=== PATIENT | female | born 1970 | race Caucasian/White ===

== ENCOUNTER 2019-06-29 15:32 | Observation (INO) ==
--- NOTE | 2019-06-29 15:38 | Emergency Department Note ---
Disposition Clinical Impression: Febrile illness, acute, Hyperkalemia Disposition: Admitted As Inpatient Condition: Fair Time of Disposition: 18:30 General Adult HPI - General Chief complaint: ED Fever Stated complaint: FEVER, NAUSEA Time Seen by Provider: 06/29/19 15:50 Source: patient Mode of arrival: private vehicle Limitations: no limitations Nursing Notes Reviewed: Yes Vital Signs Reviewed: Yes - History of Present Illness HPI Narrative: Patient reports she started feeling poorly yesterday evening. By this morning she is having more fevers and chills with a "slight headache". Today's progress the headache got a bit worse and is bitemporal and around her eyes. Headache is described as throbbing. She did take some Tylenol for the fevers chills and headache and states it is helped a bit. She denies any neck pain or stiffness. She has a new extremity numbness, tingling or weakness but admits that she has chronic neuropathy. She has some generalized weakness and malaise. She has had exposure to a niece and nephew with "colds". She denies sore throat or sinus pain. She denies cough or any increased from her normal dyspnea on exertion. She has had all nausea that will "come and go" but no vomiting. She has abdominal pain other than some mild suprapubic discomfort. She denies any urinary frequency, dysuria, abnormal odor or flank pain. She notes that she is usually "numb down there" from her neuropathy and often does not have many symptoms with urinary tract infection. She states she has normal amount of constipation secondary to her medications. 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 She did have a small red spot on her left pretibial region for which she has taken some clindamycin from an old prescription for the last 5 days. She notes that is looking much better and she only has a small scab there now. She has had a history of heart disease with a cardiac stent in December 2016. She occasionally has a feeling of an irregular heartbeat but no other chest pain or palpitations. Onset (ago): day(s) (1) Associated symptoms: Reports: fever/chills, headaches, loss of appetite, malaise, weakness. Denies: confusion, chest pain, cough, diaphoresis, nausea/vomiting, rash, seizure, shortness of breath, syncope - Related Data Home Medications Medication Instructions Recorded Confirmed Bupropion HCl [Wellbutrin Xl] 300 mg PO QAM 05/23/16 06/29/19 Albuterol Sulfate [Proair Hfa] 1 - 2 puff IH Q4H PRN 01/12/17 06/29/19 Furosemide [Lasix] 40 mg PO DAILY 01/12/17 06/29/19 Simvastatin [Zocor] 80 mg PO DAILY 01/12/17 06/29/19 Amlodipine Besylate 10 mg PO DAILY 02/04/18 06/29/19 Buprenorphine HCl/Naloxone HCl 1 each SL AD 02/04/18 06/29/19 [Suboxone 8 mg-2 mg Sl Film] Hydralazine HCl 100 mg PO BID 02/04/18 06/29/19 Insulin Glargine,Hum.rec.anlog 60 unit SQ HS 02/04/18 06/29/19 [Lantus Solostar] cloNIDine HCl [Clonidine HCl] 0.2 mg PO Q12H 02/04/18 06/29/19 Insulin LISPRO [Humalog Kwikpen 45 units SQ TIDWM 02/05/18 06/29/19 U-100] Lisinopril [Zestril] 20 mg PO DAILY 02/05/18 06/29/19 Metoprolol Succinate [Toprol Xl] 25 mg PO BID 02/05/18 06/29/19 Fluticasone/Salmeterol [Advair 1 each IH DAILY 06/29/19 06/29/19 250-50 Diskus] Furosemide [Lasix] 20 mg PO AD 06/29/19 06/29/19 Methocarbamol [Robaxin] 62 mg PO Q8HR 06/29/19 06/29/19 Previous Rx's Medication Instructions Recorded Aspirin 81 mg PO DAILY tab.chew 01/15/17 Clopidogrel [Plavix] 75 mg PO DAILY #30 tablet 01/15/17 Allergies Allergy/AdvReac Type Severity Reaction Status Date / Time Iodinated Contrast Media Allergy Hives Verified 02/05/18 09:24 [Iodinated Contrast Media - IV Dye] pioglitazone [From Actos] Allergy See Verified 02/05/18 09:24 Comments Sulfa (Sulfonamide Allergy Hives Verified 02/05/18 09:24 Antibiotics) sulfamethoxazole Allergy Itching Verified 02/05/18 09:24 [From Bactrim] trimethoprim [From Bactrim] Allergy Itching Verified 02/05/18 09:24 NSAIDS (Non-Steroidal AdvReac See Verified 02/05/18 09:24 Anti-Inflamma Comments All systems ED: reviewed and negative except as stated. Past Medical History - Past Medical History Attestation: Yes The following information was validated with the patient. Source: patient, old records reviewed, nursing notes reviewed Medical history: Reports: arthritis, CHF, COPD, coronary artery disease, diabetes, fibromyalgia, hyperlipidemia, hypertension, kidney stones, myocardial infarction, renal disease, venous stasis, other (Elevated BMI) Surgical history: Reports: angioplasty/stent, orthopedic, other (Carpal tunnel), other (Tonsillectomy) Psychiatric history: Reports: anxiety, depression GRADUATE ASSISTANT history: Reports: endometriosis, polycystic ovary syndrome - Social History Smoking Status: Current every day smoker Smokeless Tobacco Status: No Alcohol use: Reports: none Drug use: Reports: opiates (History of previous addiction with "snorting OxyContin".). Denies: IV Drug Use Physical Exam - General Limitations: no limitations General appearance: alert, in no apparent distress - Head Head exam: atraumatic, normocephalic, normal inspection - Eye Eye exam: Present: normal appearance, PERRL, EOMI. Absent: scleral icterus, conjunctival injection - ENT ENT exam: normal exam, normal oropharynx, mucous membranes moist - Neck Neck exam: Present: normal inspection, full ROM, trachea midline. Absent: tenderness, meningismus, lymphadenopathy - Chest Chest inspection: Present: normal inspection, symmetric chest wall rise. A bsent: tenderness - Respiratory Respiratory exam: Present: normal lung sounds bilaterally. Absent: respiratory distress, wheezes, prolonged expiratory phase - Cardiovascular Cardiovascular exam: Present: regular rate, normal rhythm, systolic murmur (2/6 at the left upper sternal border.) - Abdominal Exam Abdominal exam: Present: soft, Non-Tender, normal bowel sounds. Absent: ten derness, distention, guarding, rebound, rigidity, Coronado's sign, tenderness at McBurney's Point - Extremities Exam Extremities exam: Present: full ROM, normal capillary refill, other (Patient has chronic induration and discoloration of bilateral lower extremities consistent with chronic venous stasis. She does have a small scab and left pretibial region without any significant erythema or any abnormal warmth to either lower extremity.). Absent: tenderness, pedal edema - Expanded Lower Extremity Exam Neurovascular/Tendon exam: Present: normal capillary refill. Absent: motor deficit, sensory deficit, tendon deficit Gait: other (Stable gait, ambulating with a cane.) - Back Exam Back exam: Present: normal inspection, full ROM. Absent: tenderness - Neurological Exam Neurological exam: Present: alert, oriented X3 - Psychiatric Psychiatric exam: Present: normal affect, normal mood - Skin Skin exam: Present: warm, dry, intact, normal color, other (Small scab and "a couple cat scratches" to the legs.). Absent: rash, diaphoresis, pallor Course Course Narrative: 1710: She is resting comfortably and has received a liter of saline. She does not have nausea and she states her headache is improved. Her urine is clear white count is a little elevated. I am awaiting her chemistries. She feels comfortable and symptomatic treatment and outpatient management. She does not have localizing symptoms to suggest encephalitis, meningitis or septic focus. Patient is willing to await the return of the remainder of the laboratories with anticipation of discharge to home. 1719: Laboratory has called to advise of a potassium of 6.5. I requested a redraw to recheck. 1755: Patient's potassium recheck is again 6.5. She is been written for an amp of D50, an amp of bicarbonate and insulin IV. She will be continued with IV fluids. 1830: Care has been discussed with Dr. Carrero. Verbal orders have been obtained for her observation and repeat laboratory. Vital Signs Temperature 102.9 F H 06/29/19 15:34 Pulse Rate 104 06/29/19 15:34 Respiratory Rate 18 06/29/19 15:34 Blood Pressure 207/71 06/29/19 15:34 O2 Sat by Pulse Oximetry 93 06/29/19 15:34 Temperature 100.1 F H 06/29/19 21:51 Pulse Rate 96 06/29/19 20:29 Respiratory Rate 16 06/29/19 21:31 Blood Pressure 146/58 06/29/19 20:29 O2 Sat by Pulse Oximetry 93 06/29/19 21:31 Oxygen Delivery Oxygen Delivery Room Air Medical Decision Making - Medical Records Medical records reviewed: Yes I reviewed the patient's medical records. - Lab Data Lab results reviewed: Yes I reviewed the patient's lab results. Result diagrams: 06/29/19 16:07 06/29/19 22:17 Lab Results 06/29/19 06/29/19 06/29/19 Range/Units 16:07 16:07 16:07 WBC 16.4 H (4.3-11.1) K/mcL RBC 3.96 (3.82-4.97) M/mcL Hgb 10.9 L (11.5-15.4) g/dL Hct 34.2 L (35.3-44.9) % MCV 86.4 (83.0-100.0) fL MCH 27.5 L (28.0-33.3) pg MCHC 31.9 (31.6-35.5) g/dL RDW 15.8 H (11.5-14.5) % Plt Count 199 (140-400) K/mcL MPV 9.6 (9.4-12.4) fL Immature Gran % 0.4 (0-4) % Seg Neutrophils % 86.6 % Lymphocytes % 6.4 % Monocytes % 5.3 % Eosinophils % 0.9 % Basophils % 0.4 % Neutrophils # 14.2 H (1.6-8.9) K/mcL Lymphocytes # 1.1 (0.6-4.6) K/mcL Monocytes # 0.9 (0.0-1.3) K/mcL Eosinophils # 0.2 (0.0-0.6) K/mcL Basophils # 0.1 (0.0-0.2) K/mcL Sodium (136-145) mEq/L Potassium (3.5-5.1) mEq/L Chloride (98-107) mEq/L Carbon Dioxide (23-29) mEq/L BUN (6-20) mg/dL Creatinine (0.60-1.20) mg/dL Est GFR ( Amer) (> 60) Est GFR (Non-Af Amer) (> 60) BUN/Creatinine Ratio (6-26) Glucose (70-105) mg/dL Calculated Osmolality (280-300) Lactic Acid (0.5-2.2) mmol/L Calcium (8.6-10.3) mg/dL Total Bilirubin (0.3-1.0) mg/dL Direct Bilirubin (0.0-0.2) mg/dL Indirect Bilirubin (0.0-1.2) mg/dL AST (13-39) Units/L ALT (7-52) Units/L Alkaline Phosphatase (34-104) Units/L Serum Total Protein (6.4-8.9) g/dL Albumin (3.5-5.7) g/dL Globulin (2.4-3.5) g/dL Albumin/Globulin Ratio (1.1-2.2) Procalcitonin (0.00-0.15) ng/mL Urine Color Yellow (Yellow) Urine Clarity Clear (Clear) Urine pH 5.5 (5.0-8.0) pH Units Ur Specific [place] 1.020 (1.010-1.025) Urine Protein >=300 H (Neg-Trace) mg/dL Urine Glucose (UA) Normal (Normal) mg/dL Urine Ketones Negative (Negative) mg/dL Urine Blood Trace-intact H (Negative) Urine Nitrite Negative (Negative) Urine Bilirubin Negative (Negative) Urine Urobilinogen Normal (Normal) mg/dL Ur Leukocyte Esterase Negative (Negative) Urine Microscopic RBC 3-5 H (0-3) per hpf Ur Squamous Epith Cells Few (None-Few) per lpf Urine Bacteria Few (None-Few) per hpf Ur Culture Indicated? YES A (NO) Urine Test Negative (Negative) 06/29/19 06/29/19 06/29/19 Range/Units 16:07 16:07 16:13 WBC (4.3-11.1) K/mcL RBC (3.82-4.97) M/mcL Hgb (11.5-15.4) g/dL Hct (35.3-44.9) % MCV (83.0-100.0) fL MCH (28.0-33.3) pg MCHC (31.6-35.5) g/dL RDW (11.5-14.5) % Plt Count (140-400) K/mcL MPV (9.4-12.4) fL Immature Gran % (0-4) % Seg Neutrophils % % Lymphocytes % % Monocytes % % Eosinophils % % Basophils % % Neutrophils # (1.6-8.9) K/mcL Lymphocytes # (0.6-4.6) K/mcL Monocytes # (0.0-1.3) K/mcL Eosinophils # (0.0-0.6) K/mcL Basophils # (0.0-0.2) K/mcL Sodium 135 L (136-145) mEq/L Potassium 6.5 H* (3.5-5.1) mEq/L Chloride 108 H (98-107) mEq/L Carbon Dioxide 20 L (23-29) mEq/L BUN 34 H (6-20) mg/dL Creatinine 1.47 H (0.60-1.20) mg/dL Est GFR ( Amer) 46 L (> 60) Est GFR (Non-Af Amer) 38 L (> 60) BUN/Creatinine Ratio 23 (6-26) Glucose 164 H (70-105) mg/dL Calculated Osmolality 291 (280-300) Lactic Acid 1.0 (0.5-2.2) mmol/L Calcium 8.6 (8.6-10.3) mg/dL Total Bilirubin 0.3 (0.3-1.0) mg/dL Direct Bilirubin 0.0 (0.0-0.2) mg/dL Indirect Bilirubin 0.3 (0.0-1.2) mg/dL AST 12 L (13-39) Units/L ALT 11 (7-52) Units/L Alkaline Phosphatase 68 (34-104) Units/L Serum Total Protein 7.3 (6.4-8.9) g/dL Albumin 3.7 (3.5-5.7) g/dL Globulin 3.6 H (2.4-3.5) g/dL Albumin/Globulin Ratio 1.0 L (1.1-2.2) Procalcitonin 0.11 (0.00-0.15) ng/mL Urine Color (Yellow) Urine Clarity (Clear) Urine pH (5.0-8.0) pH Units Ur Specific [place] (1.010-1.025) Urine Protein (Neg-Trace) mg/dL Urine Glucose (UA) (Normal) mg/dL Urine Ketones (Negative) mg/dL Urine Blood (Negative) Urine Nitrite (Negative) Urine Bilirubin (Negative) Urine Urobilinogen (Normal) mg/dL Ur Leukocyte Esterase (Negative) Urine Microscopic RBC (0-3) per hpf Ur Squamous Epith Cells (None-Few) per lpf Urine Bacteria (None-Few) per hpf Ur Culture Indicated? (NO) Urine Test (Negative) 06/29/19 Range/Units 17:42 WBC (4.3-11.1) K/mcL RBC (3.82-4.97) M/mcL Hgb (11.5-15.4) g/dL Hct (35.3-44.9) % MCV (83.0-100.0) fL MCH (28.0-33.3) pg MCHC (31.6-35.5) g/dL RDW (11.5-14.5) % Plt Count (140-400) K/mcL MPV (9.4-12.4) fL Immature Gran % (0-4) % Seg Neutrophils % % Lymphocytes % % Monocytes % % Eosinophils % % Basophils % % Neutrophils # (1.6-8.9) K/mcL Lymphocytes # (0.6-4.6) K/mcL Monocytes # (0.0-1.3) K/mcL Eosinophils # (0.0-0.6) K/mcL Basophils # (0.0-0.2) K/mcL Sodium (136-145) mEq/L Potassium 6.5 H* (3.5-5.1) mEq/L Chloride (98-107) mEq/L Carbon Dioxide (23-29) mEq/L BUN (6-20) mg/dL Creatinine (0.60-1.20) mg/dL Est GFR ( Amer) (> 60) Est GFR (Non-Af Amer) (> 60) BUN/Creatinine Ratio (6-26) Glucose (70-105) mg/dL Calculated Osmolality (280-300) Lactic Acid (0.5-2.2) mmol/L Calcium (8.6-10.3) mg/dL Total Bilirubin (0.3-1.0) mg/dL Direct Bilirubin (0.0-0.2) mg/dL Indirect Bilirubin (0.0-1.2) mg/dL AST (13-39) Units/L ALT (7-52) Units/L Alkaline Phosphatase (34-104) Units/L Serum Total Protein (6.4-8.9) g/dL Albumin (3.5-5.7) g/dL Globulin (2.4-3.5) g/dL Albumin/Globulin Ratio (1.1-2.2) Procalcitonin (0.00-0.15) ng/mL Urine Color (Yellow) Urine Clarity (Clear) Urine pH (5.0-8.0) pH Units Ur Specific [place] (1.010-1.025) Urine Protein (Neg-Trace) mg/dL Urine Glucose (UA) (Normal) mg/dL Urine Ketones (Negative) mg/dL Urine Blood (Negative) Urine Nitrite (Negative) Urine Bilirubin (Negative) Urine Urobilinogen (Normal) mg/dL Ur Leukocyte Esterase (Negative) Urine Microscopic RBC (0-3) per hpf Ur Squamous Epith Cells (None-Few) per lpf Urine Bacteria (None-Few) per hpf Ur Culture Indicated? (NO) Urine Test (Negative) - Radiology Data Radiology results reviewed: Yes I reviewed the patient's radiology results. - EKG Data EKG #1 EKG attestation: Yes I reviewed and interpreted this EKG. EKG shows normal: sinus rhythm, axis, intervals, QRS complexes, ST-T waves Rate: normal Interpretation: no acute changes
[2019-06-29] MEDS ORDERED: 0.9 % Sodium Chloride 1,000 ML IVC ONE (15:52)
[2019-06-29] MEDS ORDERED: Acetaminophen 325 MG TABLET PO ONE (15:53)
[2019-06-29] MEDS ORDERED: 0.9 % Sodium Chloride 1,000 ML IVC SCH (16:00)
[2019-06-29 16:17] LABS: Bilirubin,Urine Negative (Negative); Blood,Urine Trace-intact (Negative); Clarity,Urine Clear (Clear); Color,Urine Yellow (Yellow); Glucose,Urine (UA) Normal (Normal); Ketones,Urine Negative (Negative); Leukocyte Esterase,Urine Negative (Negative); Nitrite,Urine Negative (Negative); PH,Urine 5.5 pH Units (5.0-8.0); Protein,Urine >=300 mg/dL (Neg-Trace); Urobilinogen,Urine Normal (Normal)
[2019-06-29 16:22] LABS: Basophils # 0.1 K/mcL (0.0-0.2); Basophils % 0.4 %; Eosinophils # 0.2 K/mcL (0.0-0.6); Eosinophils % 0.9 %; Hematocrit 34.2 % (35.3-44.9); Hemoglobin 10.9 g/dL (11.5-15.4); Immature Granulocytes % 0.4 % (0-4); Lymphocytes # 1.1 K/mcL (0.6-4.6); Lymphocytes % 6.4 %; Mean Corpuscular HGB Conc 31.9 g/dL (31.6-35.5); Mean Corpuscular Hemoglobin 27.5 pg (28.0-33.3); Mean Corpuscular Volume 86.4 fL (83.0-100.0); Mean Platelet Volume 9.6 fL (9.4-12.4); Monocytes # 0.9 K/mcL (0.0-1.3); Monocytes % 5.3 %; Neutrophils # 14.2 K/mcL (1.6-8.9); Platelet Count 199 K/mcL (140-400); Red Blood Count 3.96 M/mcL (3.82-4.97); Red Cell Distribution Width 15.8 % (11.5-14.5); Segmented Neutrophils % 86.6 %; White Blood Count 16.4 K/mcL (4.3-11.1)
[2019-06-29 16:29] LABS: Bacteria,Urine Few per hpf (None-Few); Squamous Epithelial Cell,Urine Few per lpf (None-Few)
[2019-06-29 17:26] LABS: Albumin 3.7 g/dL (3.5-5.7); Bilirubin,Indirect 0.3 mg/dL (0.0-1.2); Bilirubin,Total 0.3 mg/dL (0.3-1.0); Calcium 8.6 mg/dL (8.6-10.3); Globulin 3.6 g/dL (2.4-3.5); Potassium 6.5 mEq/L (3.5-5.1); Total Protein 7.3 g/dL (6.4-8.9)
[2019-06-29] MEDS ORDERED: *HR* Dextrose 50 % in Water (Syg) 50 ML SYRINGE IVP ONE (17:54)
[2019-06-29] MEDS ORDERED: Insulin Human Regular 10 UNIT in 0.9 % Sodium Chloride 10 ML IV ONE (17:54)
[2019-06-29] MEDS ORDERED: Sodium Bicarbonate 50 MEQ in 0.45 % Sodium Chloride 1,000 ML IVC SCH (18:00)
[2019-06-29] MEDS ORDERED: Sodium Bicarbonate 50 MEQ/50 ML VIAL IVP ONE (18:18)
[2019-06-29] MEDS ORDERED: Albuterol 2.5 MG/3 ML NEBULIZER IH PRN (18:42)
[2019-06-29] MEDS ORDERED: Ondansetron 4 MG/2 ML VIAL IVP PRN (18:54)
[2019-06-29] MEDS ORDERED: MOM Conc 10 ML UD.LIQ PO PRN (18:54)
[2019-06-29] MEDS ORDERED: Mag Hydrox/Al Hydrox/Simeth 30 ML UDC PO PRN (18:54)
[2019-06-29] MEDS ORDERED: NALOXONE HCL SL SCH (18:54)
[2019-06-29] MEDS ORDERED: Naloxone 0.4 MG/ML INJ IVP PRN (18:54)
[2019-06-29] MEDS ORDERED: D5% in Water 1,000 ML IVC PRN (18:54)
[2019-06-29] MEDS ORDERED: *HR* Dextrose 50 % in Water (Syg) 50 ML SYRINGE IVP PRN (18:54)
[2019-06-29] MEDS ORDERED: BUPRENORPHINE HCL SL SCH (18:54)
[2019-06-29] MEDS ORDERED: Dextrose Gel 15 GM/37.5 ML TUBE PO PRN ×2 (18:54)
[2019-06-29] MEDS: cloNIDine HCl 0.1 MG TABLET PO SCH (19:26)
[2019-06-29] MEDS: Acetaminophen 325 MG TABLET PO PRN (19:26)
[2019-06-29] MEDS: 0.9 % Sodium Chloride 1,000 ML IVC SCH (19:27)
[2019-06-29] MEDS ORDERED: Azithromycin 500 MG in 0.9 % Sodium Chloride 250 ML IVPB ONE (19:57)
[2019-06-29] MEDS ORDERED: cefTRIAXone 1,000 MG in Water for inj. (sterile) 10 ML IVP ONE (19:57)
[2019-06-29] MEDS ORDERED: Insulin DETEMIR 100 UNIT/ML per UNIT SQ ONE (21:00)
[2019-06-29] MEDS: hydrALAZINE 25 MG TABLET PO SCH (21:10)
[2019-06-29] MEDS: Metoprolol XL (24 HR) Succ 25 MG TAB.ER.24H PO SCH (21:10)
[2019-06-29] MEDS: Ipratropium/Albuterol Neb 3 ML IH SCH (21:31)
[2019-06-29] MEDS ORDERED: Ipratropium/Albuterol Neb 3 ML IH SCH (22:00)
[2019-06-29 22:39] LABS: Calcium 7.6 mg/dL (8.6-10.3); Potassium 6.3 mEq/L (3.5-5.1)
[2019-06-30] MEDS ORDERED: Methocarbamol 500 MG TABLET PO SCH
[2019-06-30] MEDS: Albuterol 2.5 MG/3 ML NEBULIZER IH PRN ×2 (02:23→21:15)
[2019-06-30] MEDS: Acetaminophen 325 MG TABLET PO PRN (02:46)
[2019-06-30] MEDS: Ipratropium/Albuterol Neb 3 ML IH SCH ×2 (05:04→10:17)
[2019-06-30 06:32] LABS: Hematocrit 28.9 % (35.3-44.9); Mean Corpuscular HGB Conc 31.1 g/dL (31.6-35.5); Mean Corpuscular Hemoglobin 27.2 pg (28.0-33.3); Mean Corpuscular Volume 87.3 fL (83.0-100.0); Platelet Count 155 K/mcL (140-400); Red Blood Count 3.31 M/mcL (3.82-4.97); Red Cell Distribution Width 15.8 % (11.5-14.5); White Blood Count 12.3 K/mcL (4.3-11.1)
[2019-06-30] MEDS: cloNIDine HCl 0.1 MG TABLET PO SCH ×2 (06:57→18:04)
[2019-06-30 06:59] LABS: Calcium 7.4 mg/dL (8.6-10.3); Potassium 5.2 mEq/L (3.5-5.1)
[2019-06-30] MEDS ORDERED: Acetaminophen 325 MG TABLET PO PRN (07:16)
[2019-06-30] MEDS ORDERED: INSULIN LISPRO 45 UNIT SQ SCH (08:00)
[2019-06-30] MEDS: Insulin LISPRO 300 UNITS/3 ML VIAL SQ SCH ×3 (08:42→18:04)
[2019-06-30] MEDS: hydrALAZINE 25 MG TABLET PO SCH ×2 (08:43→20:51)
[2019-06-30] MEDS: 0.9 % Sodium Chloride 1,000 ML IVC SCH (08:44)
[2019-06-30] MEDS: Metoprolol XL (24 HR) Succ 25 MG TAB.ER.24H PO SCH ×2 (08:44→23:48)
[2019-06-30] MEDS ORDERED: amLODIPine 5 MG TABLET PO SCH (09:00)
[2019-06-30] MEDS ORDERED: Lisinopril 20 MG TABLET PO SCH (09:00)
[2019-06-30] MEDS ORDERED: Furosemide 40 MG TABLET PO SCH (09:00)
[2019-06-30] MEDS ORDERED: Aspirin 81 MG TAB.CHEW PO SCH (09:00)
[2019-06-30] MEDS ORDERED: BuPROPion XL (24 HR) 150 MG TABLET PO SCH (09:00)
--- NOTE | 2019-06-30 10:12 | Internal Med History&Physical ---
Date of Encounter: 06/30/19 Time of Encounter: 09:45 Assessment and Plan (1) Neutrophilic leukocytosis Current visit: No Status: Acute Pro-calcitonin level WNL at 0.11. She received doses of Rocephin, Zithromax, and vancomycin last evening. Antibiotics will not be continued at this time. Recheck labs in a.m. (2) Anemia Current visit: Yes Status: Acute Anemia testing will be ordered. Qualifiers: Anemia type: unspecified type Qualified Code(s): D64.9 - Anemia, unspecified (3) Hypocalcemia Current visit: Yes Status: Acute PTH was elevated 132.1 on 01/14/2017. Recheck with other labs. (4) Hyperkalemia Current visit: Yes Status: Acute Likely due to ACEI use with chronic kidney disease. ACEI will be discontinued. Kayexalate was given last evening and potassium level has significantly decreased. (5) Febrile illness, acute Current visit: Yes Status: Acute Suspect viral infection. No further antibiotics will be given at this time. (6) DM2 (diabetes mellitus, type 2) Current visit: No Status: Chronic Check chemotherapy but A1c in a.m. Continue Lantus/Levemir and Accu-Cheks with SSI. Qualifiers: Diabetes mellitus senior care insulin use: with long term care social worker use Diabetes mellitus complication status: with kidney complications Diabetes mellitus complication detail: with chronic kidney disease Chronic kidney disease stage: stage 3 (moderate) Qualified Code(s): E11.22 - Type 2 diabetes mellitus with diabetic chronic kidney disease; N18.3 - Chronic kidney disease, stage 3 (moderate); Z79.4 - buttermaker (current) use of insulin (7) HTN (hypertension) Current visit: No Status: Chronic Hold lisinopril due to hyperkalemia. Continue Toprol, Norvasc, and clonidine. Qualifiers: Hypertension type: essential hypertension Qualified Code(s): I10 - Essential (primary) hypertension (8) CKD (chronic kidney disease) stage 3, GFR 30-59 ml/min Current visit: No Status: Chronic Hold Lasix and lisinopril and monitor renal indices. Internal Medicine - H&P: HPI Chief complaint: Fever and headache Admitted From: Emergency Dept Plans for Post Hospital Care: Home History of present illness: Ms. Concepcion is a 48 year old female who came to emergency room stating she had fever and headache onset earlier the morning of admission. She reports nausea but no vomiting or diarrhea. She denies significant cough or dysuria. She was evaluated emergency room and was found to have leukocytosis with left shift, anemia, and hyperkalemia. She was admitted to Medr floor for ongoing care needs. Past Med Surg Social Fam HX - Past Medical History Medical history: arthritis, CHF, COPD, coronary artery disease, diabetes, fibromyalgia, hyperlipidemia, hypertension, kidney stones, myocardial infarction, renal disease, venous stasis, other Additional medical history: CELLULITIS Psychiatric history: anxiety, depression - Past Surgical History Surgical History: angioplasty/stent, orthopedic, other, other Additional surgical history: carpel tunnel sx - Social History Smoking Status: Current every day smoker Packs per day: 1/2-1 Smokeless Tobacco Status: Yes Alcohol use: none Drug use: none - Family History Father Family Member Ethnicity: Non- Living Status: Mother Living Status: Hx Family Cardiac Disorders: Yes (Congestive heart failure) Hx Family Endocrine Disorder: Yes (Diabetes, morbid obesity) Internal Medicine - H&P: Meds Bupropion HCl [Wellbutrin Xl] 300 mg PO QAM 05/23/16 [History] Albuterol Sulfate [Proair Hfa] 1 - 2 puff IH Q4H PRN 01/12/17 [History] Furosemide [Lasix] 40 mg PO DAILY 01/12/17 [History] Simvastatin [Zocor] 80 mg PO DAILY 01/12/17 [History] Aspirin 81 mg PO DAILY tab.chew 01/15/17 [Rx] Clopidogrel [Plavix] 75 mg PO DAILY #30 tablet 01/15/17 [Rx] Amlodipine Besylate 10 mg PO DAILY 02/04/18 [History] Buprenorphine HCl/Naloxone HCl [Suboxone 8 mg-2 mg Sl Film] 1 each SL AD 02/04/18 [History] Hydralazine HCl 100 mg PO BID 02/04/18 [History] Insulin Glargine,Hum.rec.anlog [Lantus Solostar] 60 unit SQ HS 02/04/18 [History] cloNIDine HCl [Clonidine HCl] 0.2 mg PO Q12H 02/04/18 [History] Insulin LISPRO [Humalog Kwikpen U-100] 45 units SQ TIDWM 02/05/18 [History] Lisinopril [Zestril] 20 mg PO DAILY 02/05/18 [History] Metoprolol Succinate [Toprol Xl] 25 mg PO BID 02/05/18 [History] Fluticasone/Salmeterol [Advair 250-50 Diskus] 1 each IH DAILY 06/29/19 [History] Furosemide [Lasix] 20 mg PO AD 06/29/19 [History] Methocarbamol [Robaxin] 62 mg PO Q8HR 06/29/19 [History] Allergy/AdvReac Type Severity Reaction Status Date / Time Iodinated Contrast Media Allergy Hives Verified 02/05/18 09:24 [Iodinated Contrast Media - IV Dye] pioglitazone [From Actos] Allergy See Verified 02/05/18 09:24 Comments Sulfa (Sulfonamide Allergy Hives Verified 02/05/18 09:24 Antibiotics) sulfamethoxazole Allergy Itching Verified 02/05/18 09:24 [From Bactrim] trimethoprim [From Bactrim] Allergy Itching Verified 02/05/18 09:24 NSAIDS (Non-Steroidal AdvReac See Verified 02/05/18 09:24 Anti-Inflamma Comments All Systems PM: A 10-system review of systems was performed and is negative for pertinent findings except as documented above in the HPI. Review of systems: Gen.: Her weight has decreased from 195.952 kg in July 2014 to admission weight of 184.329 kg at present. Cardiovascular: She has history of hypertension and had STEMI December 2016 followed by PTCA/ASHU in the mid RCA for 99% stenosis. The LMCA was free of disease, 30% stenosis in the proximal LAD, 30% stenosis in the proximal circumflex, and 30% stenosis in the first marginal branch. LVEF was 55%. She remains on DAPT. Echocardiogram 02/06/2018 showed LVEF of 55%. There was indeterminate diastolic function assessment reported although E/A ratio is 1.7. There was mild mitral and tricuspid regurgitation. Estimated RVSP was significantly elevated to 63 mmHg. The interventricular septum and posterior wall thickness measurements were 1.20 cm. There was LAE at 5.20 cm. She denies DVT or pulmonary embolus Respiratory: She has smoked since age 13 up to 2.5 packs per day. She does not recall having PFTs. She has oxygen at home which she uses as needed. GI: She denies disorders with her liver gallbladder or exocrine pancreas. : She had kidney stone approximately 1999 without recurrence. She has chronic kidney disease stage III and follows with a [facility]. She denies other kidney or bladder disorders . Neurologic: She denies large distribution strokes or seizures. Endocrine: She was diagnosed with DM 2 approximately 1984 . She has hyperlipidemia but no known thyroid disease. Hematology/oncology: She denies blood disorders or cancers. She has had anemia on all labs since January 2018. Psychiatric: She has anxiety and depression and follows at [facility]. [place] skeletal: She has arthritis and fibromyalgia. She denies gout or osteoporosis. - Constitutional Vitals: Temp Pulse Resp BP Pulse Ox 98.7 F 78 16 143/66 95 06/30/19 06:59 06/30/19 06:59 06/30/19 06:59 06/30/19 06:59 06/30/19 08:37 Exam: Gen.: She is a well-developed morbidly obese female lying in bed who appears in no acute distress at present time HEENT: Head is atraumatic and normocephalic. Eyes: EOMI. There is no scleral icterus. Mouth: Mucosa is moist. Neck: Supple and nontender. There is no thyromegaly or adenopathy noted. Heart: Regular without murmurs gallops or ectopics Lungs: No wheezes or crackles are heard. She has occasional cough during examination. There are very few scattered rhonchi. Abdomen: She has a very large pannus. It is nontender to palpation. Organ size cannot be determined. Extremity: She has chronic venous stasis pigmentation discoloration of her lower legs. She has severe lymphedema with dermal thickening with nodularity. Dorsalis pedis and posterior tibial pulses are not palpable. Neurologic: Mental status: She is talkative and a good historian. Cranial nerv es: Smile is symmetric. Forehead wrinkles bilaterally. Tongue protrudes midline. EOMI. Motor: There is no pronator drift. Cerebellar: Finger to nose is intact bilaterally. Skin: Warm and dry Internal Med - H&P Results - Labs CBC & Chem 7: 06/30/19 06:10 06/30/19 06:10 Labs: Short CBC 06/29/19 06/30/19 Range/Units 16:07 06:10 WBC 16.4 H 12.3 H (4.3-11.1) K/mcL Hgb 10.9 L 9.0 L D (11.5-15.4) g/dL Hct 34.2 L 28.9 L (35.3-44.9) % Plt Count 199 155 (140-400) K/mcL Neutrophils # 14.2 H (1.6-8.9) K/mcL BMP 06/29/19 06/29/19 06/29/19 16:07 17:42 22:17 Sodium 135 L 132 L Potassium 6.5 H* 6.5 H* 6.3 H Chloride 108 H 107 Carbon Dioxide 20 L 20 L BUN 34 H 32 H Creatinine 1.47 H 1.39 H Glucose 164 H 309 H Calcium 8.6 7.6 L 06/30/19 06:10 Sodium 133 L Potassium 5.2 H Chloride 107 Carbon Dioxide 21 L BUN 30 H Creatinine 1.35 H Glucose 246 H Calcium 7.4 L Liver Function 06/29/19 Range/Units 16:07 Total Bilirubin 0.3 (0.3-1.0) mg/dL Direct Bilirubin 0.0 (0.0-0.2) mg/dL AST 12 L (13-39) Units/L ALT 11 (7-52) Units/L Alkaline Phosphatase 68 (34-104) Units/L Albumin 3.7 (3.5-5.7) g/dL Urine 06/29/19 Range/Units 16:07 Urine Color Yellow (Yellow) Urine Clarity Clear (Clear) Urine pH 5.5 (5.0-8.0) pH Units Ur Specific [place] 1.020 (1.010-1.025) Urine Protein >=300 H (Neg-Trace) mg/dL Urine Glucose (UA) Normal (Normal) mg/dL
[2019-06-30 11:17] LABS: Magnesium 1.7 mg/dL (1.6-2.6)
--- NOTE | 2019-06-30 13:57 | Electrocardiograph Report ---
[place] [id number] Test Date: 2019-06-29 Pat Name: Jazzy Concepcion Department: EDP-12 Room: [facility] Gender: F [employer]ing Technician: : 1970 Requested By: Adan Isidro Order Number: [id number] Reading MD: Amrita Colvin Measurements Intervals [place] Rate: 93 P: 0 NM: 190 QRS: 233 QRSD: 125 T: 43 QT: 352 QTc: 438 Interpretive Statements Sinus rhythm Nonspecific intraventricular conduction delay Markedly posterior QRS axis Electronically Signed On 06-30-2019 13:56:08 EDT by Amrita Colvin
[2019-06-30 17:18] LABS: % Iron Saturation 8 % (15-50); Iron 19 mcg/dL (50-170); Transferrin 162 mg/dL (203-362)
[2019-06-30 17:28] LABS: Estimated Average Glucose 229 mg/dl
[2019-06-30 17:36] LABS: Ferritin 104 ng/mL (10-120)
[2019-06-30 17:41] LABS: Folate 10.3 ng/mL (3.0-16.0)
[2019-06-30] MEDS ORDERED: Benzonatate 100 MG CAPSULE PO PRN (17:54)
[2019-06-30] MEDS ORDERED: BUPRENORPHINE HCL SL ONE (21:00)
[2019-06-30] MEDS ORDERED: Insulin DETEMIR 100 UNIT/ML X5UNITS SQ SCH (21:00)
[2019-06-30] MEDS ORDERED: NALOXONE HCL SL ONE (21:00)
[2019-06-30] MEDS: Budesonide/Formoterol 80/4.5 1 PUFF INH IH SCH (21:15)
[2019-07-01 07:06] LABS: Basophils % 0.3 %; Eosinophils # 0.1 K/mcL (0.0-0.6); Eosinophils % 0.5 %; Hemoglobin 8.8 g/dL (11.5-15.4); Immature Granulocytes % 0.6 % (0-4); Lymphocytes # 0.9 K/mcL (0.6-4.6); Lymphocytes % 9.8 %; Mean Corpuscular HGB Conc 31.4 g/dL (31.6-35.5); Mean Corpuscular Hemoglobin 27.4 pg (28.0-33.3); Mean Corpuscular Volume 87.2 fL (83.0-100.0); Mean Platelet Volume 10.6 fL (9.4-12.4); Monocytes # 0.6 K/mcL (0.0-1.3); Monocytes % 6.4 %; Neutrophils # 7.7 K/mcL (1.6-8.9); Platelet Count 137 K/mcL (140-400); Red Blood Count 3.21 M/mcL (3.82-4.97); Red Cell Distribution Width 15.7 % (11.5-14.5); Segmented Neutrophils % 82.4 %; White Blood Count 9.3 K/mcL (4.3-11.1)
[2019-07-01 07:45] LABS: Bilirubin,Total 0.2 mg/dL (0.3-1.0); Calcium 7.6 mg/dL (8.6-10.3); Globulin 3.1 g/dL (2.4-3.5); Potassium 5.2 mEq/L (3.5-5.1); Total Protein 6.1 g/dL (6.4-8.9)
[2019-07-01 08:02] VITALS: BP 153/72
[2019-07-01] MEDS: Budesonide/Formoterol 80/4.5 1 PUFF INH IH SCH (09:22)
[2019-07-01] MEDS: Albuterol 2.5 MG/3 ML NEBULIZER IH PRN (09:30)
--- NOTE | 2019-07-01 09:55 | Discharge Summary ---
Orders not resulted at time of discharge: Pending orders 06/29/19 16:18 Culture,Blood [BC] Stat 06/30/19 10:55 Vitamin D-1,25(reference test) Routine Date of Encounter: 07/01/19 Time of Encounter: 09:45 - Discharge Diagnosis (1) Febrile illness, acute Priority: Primary Status: Acute (2) Neutrophilic leukocytosis Priority: Secondary Status: Acute (3) Anemia Priority: Secondary Status: Acute Qualifiers: Anemia type: unspecified type Qualified Code(s): D64.9 - Anemia, unspecified (4) Hypocalcemia Priority: Secondary Status: Acute (5) Hyperkalemia Priority: Secondary Status: Acute (6) DM2 (diabetes mellitus, type 2) Priority: Secondary Status: Chronic Qualifiers: Diabetes mellitus watermaster insulin use: with halfway use Diabetes mellitus complication status: with kidney complications Diabetes mellitus complication detail: with chronic kidney disease Chronic kidney disease stage: stage 3 (moderate) Qualified Code(s): E11.22 - Type 2 diabetes mellitus with diabetic chronic kidney disease; N18.3 - Chronic kidney disease, stage 3 (moderate); Z79.4 - intermediate accountant (current) use of insulin (7) HTN (hypertension) Priority: Secondary Status: Chronic Qualifiers: Hypertension type: essential hypertension Qualified Code(s): I10 - Essential (primary) hypertension (8) CKD (chronic kidney disease) stage 3, GFR 30-59 ml/min Priority: Secondary Status: Chronic (9) Low vitamin D level Priority: Secondary Status: Acute Hospital course: Ms. Concepcion is a 48 year old female who came to emergency room stating she had fever and headache onset earlier the morning of admission. She reports nausea but no vomiting or diarrhea. She denies significant cough or dysuria. She was evaluated emergency room and was found to have leukocytosis with left shift, anemia, and hyperkalemia. She was admitted to [facility] floor for ongoing care needs. Initial orders were written by the emergency room physician. I saw her on June 30 and performed a history and physical. She was given IV Rocephin, Zithromax, and vancomycin on admission. Pro-calcitonin level returned WNL at 0.11. Additional antibiotics were not given. WBC normalized to 9.3 with lessening of left shift on differential by day of discharge. She continued to spike occasional fevers but felt significantly improved on July 01 and stable for discharge home. Further antibiotics will not be given at this time. Lasix and lisinopril were held. IV fluids were given and BUN and creatinine decreased slightly to 28 and 1.31 respectively by day of discharge. She will remain off these medications at discharge and her PCP can monitor labs. Potassium level decreased to 5.2 with discontinuation of lisinopril and administration of Kayexalate. She will remain off lisinopril at discharge. Calcium level remained low at 7.6 on day of discharge. PTH was ordered with results pending at time of discharge. Vitamin D level returned low at 13. Phosphorus level was normal at 3.0. She will be given vitamin D and calcium supplementation at discharge and her PCP can monitor labs. Anemia testing showed iron 19, transferrin saturation 8%, transferrin 162, ferritin 104, B12 262, and folate 10.3. She was started on ferrous sulfate with ascorbic acid at discharge. MMA was ordered to further assess B12 status. Her PCP can follow up on these labs. Hemoglobin A1c returned elevated at 9.6%. I encouraged her to follow diabetic diet more closely. She reported she is being evaluated for GBS at [facility]. On July 01 she felt significantly improved and stable for discharge home. She will follow with her PCP Anna Bradshaw CNP within 1 week. - Time Spent with Patient Total time spent providing and/or coordinating discharge services: - Discharge Medications Prescriptions: New Ascorbic Acid [C-500] 500 mg PO DAILY #30 tablet Calcium Carbonate 1,000 mg PO DAILY #60 tablet Ferrous Sulfate 325 mg PO DAILY #30 tablet Cholecalciferol (D-3) [Vitamin D] 2,000 unit PO DAILY #60 tablet Continued Simvastatin [Zocor] 80 mg PO DAILY Albuterol Sulfate [Proair Hfa] 1 - 2 puff IH Q4H PRN PRN Reason: Shortness Of Breath Clopidogrel [Plavix] 75 mg PO DAILY #30 tablet Aspirin 81 mg PO DAILY tab.chew Metoprolol Succinate [Toprol Xl] 25 mg PO BID Insulin LISPRO [Humalog Kwikpen U-100] 45 units SQ TIDWM Bupropion HCl [Wellbutrin Xl] 300 mg PO QAM Buprenorphine HCl/Naloxone HCl [Suboxone 8 mg-2 mg Sl Film] 1 each SL AD Amlodipine Besylate 10 mg PO DAILY cloNIDine HCl [Clonidine HCl] 0.2 mg PO Q12H Hydralazine HCl 100 mg PO BID Insulin Glargine,Hum.rec.anlog [Lantus Solostar] 60 unit SQ HS Fluticasone/Salmeterol [Advair 250-50 Diskus] 1 each IH DAILY Methocarbamol [Robaxin] 62 mg PO Q8HR Discontinued Furosemide [Lasix] 40 mg PO DAILY Lisinopril [Zestril] 20 mg PO DAILY Furosemide [Lasix] 20 mg PO AD Home Medications: Bupropion HCl [Wellbutrin Xl] 300 mg PO QAM 05/23/16 [History] Albuterol Sulfate [Proair Hfa] 1 - 2 puff IH Q4H PRN 01/12/17 [History] Simvastatin [Zocor] 80 mg PO DAILY 01/12/17 [History] Aspirin 81 mg PO DAILY tab.chew 01/15/17 [Rx] Clopidogrel [Plavix] 75 mg PO DAILY #30 tablet 01/15/17 [Rx] Amlodipine Besylate 10 mg PO DAILY 02/04/18 [History] Buprenorphine HCl/Naloxone HCl [Suboxone 8 mg-2 mg Sl Film] 1 each SL AD 02/04/18 [History] Hydralazine HCl 100 mg PO BID 02/04/18 [History] Insulin Glargine,Hum.rec.anlog [Lantus Solostar] 60 unit SQ HS 02/04/18 [History] cloNIDine HCl [Clonidine HCl] 0.2 mg PO Q12H 02/04/18 [History] Insulin LISPRO [Humalog Kwikpen U-100] 45 units SQ TIDWM 02/05/18 [History] Metoprolol Succinate [Toprol Xl] 25 mg PO BID 02/05/18 [History] Fluticasone/Salmeterol [Advair 250-50 Diskus] 1 each IH DAILY 06/29/19 [History] Methocarbamol [Robaxin] 62 mg PO Q8HR 06/29/19 [History] Ascorbic Acid [C-500] 500 mg PO DAILY #30 tablet 07/01/19 [Rx] Calcium Carbonate 1,000 mg PO DAILY #60 tablet 07/01/19 [Rx] Cholecalciferol (D-3) [Vitamin D] 2,000 unit PO DAILY #60 tablet 07/01/19 [Rx] Ferrous Sulfate 325 mg PO DAILY #30 tablet 07/01/19 [Rx] Allergies/Adverse Reactions: Allergy/AdvReac Type Severity Reaction Status Date / Time Iodinated Contrast Media Allergy Hives Verified 02/05/18 09:24 [Iodinated Contrast Media - IV Dye] pioglitazone [From Actos] Allergy See Verified 02/05/18 09:24 Comments Sulfa (Sulfonamide Allergy Hives Verified 02/05/18 09:24 Antibiotics) sulfamethoxazole Allergy Itching Verified 02/05/18 09:24 [From Bactrim] trimethoprim [From Bactrim] Allergy Itching Verified 02/05/18 09:24 NSAIDS (Non-Steroidal AdvReac See Verified 02/05/18 09:24 Anti-Inflamma Comments Date of admission: 06/29/19 18:47 Primary care physician: Anna Bradshaw - Constitutional Vitals: Temp Pulse Resp BP Pulse Ox 99.2 F 78 16 153/72 97 07/01/19 07:52 07/01/19 07:52 07/01/19 09:23 07/01/19 07:52 07/01/19 09:23 - Patient Status Disposition: Home, Self-Care Condition: Fair - Discharge Instructions Follow Up With: Anna Bradshaw, TITLE ATTORNEY [Primary Care Provider] - 1 week - Diet and Activity Activity: resume usual activities as tolerated Diet: diabetic diet
== END 2019-07-01 10:45 | disposition home or self-care (01) ==
LOC: INPPIK 15:32 → EMEROOPIK 15:32 → INPPIK 19:12
PROVIDERS: ADMIT Internal Medicine; ATTEND Internal Medicine

== ENCOUNTER 2020-12-08 16:11 | Inpatient (IN) ==
[2020-12-08] MEDS ORDERED: methylPREDNISolone 125 MG/2 ML VIAL IVP ONE (16:17)
[2020-12-08] MEDS ORDERED: Ipratropium/Albuterol Neb 3 ML IH ONE (16:17)
[2020-12-08] MEDS ORDERED: Azithromycin 250 MG TABLET PO ONE (16:17)
[2020-12-08 16:48] LABS: Basophils % 0.3 %; Eosinophils # 0.2 K/mcL (0.0-0.6); Hematocrit 33.5 % (35.3-44.9); Hemoglobin 10.3 g/dL (11.5-15.4); Immature Granulocytes % 0.3 % (0-4); Lymphocytes # 1.1 K/mcL (0.6-4.6); Lymphocytes % 11.8 %; Mean Corpuscular HGB Conc 30.7 g/dL (31.6-35.5); Mean Corpuscular Hemoglobin 26.3 pg (28.0-33.3); Mean Corpuscular Volume 85.5 fL (83.0-100.0); Mean Platelet Volume 10.3 fL (9.4-12.4); Monocytes # 0.6 K/mcL (0.0-1.3); Monocytes % 6.5 %; Neutrophils # 7.1 K/mcL (1.6-8.9); Platelet Count 212 K/mcL (140-400); Red Blood Count 3.92 M/mcL (3.82-4.97); Red Cell Distribution Width 17.7 % (11.5-14.5); Segmented Neutrophils % 79.1 %
[2020-12-08 17:07] LABS: Albumin 3.2 g/dL (3.5-5.7); Albumin/Globulin Ratio 1.1 (1.1-2.2); Bilirubin,Direct 0.1 mg/dL (0.0-0.2); Bilirubin,Indirect 0.4 mg/dL (0.0-1.0); Bilirubin,Total 0.5 mg/dL (0.3-1.0); Globulin 2.9 g/dL (2.4-3.5); Total Protein 6.1 g/dL (6.4-8.9); Troponin I < 0.03 ng/mL (< 0.04)
[2020-12-08 17:08] LABS: BUN/Creatinine Ratio 28 (6-26); Blood Urea Nitrogen 38 mg/dL (6-20); Calcium 8.3 mg/dL (8.6-10.3); Carbon Dioxide 26 mEq/L (23-29); Chloride 104 mEq/L (98-107); Glucose 237 mg/dL (70-105); Osmolality,Calculated 303 (280-300); Potassium 4.3 mEq/L (3.5-5.1); Sodium 138 mEq/L (136-145); eGFR For African Americans 49 (> 60); eGFR For Non-African Americans 40 (> 60)
[2020-12-08] MEDS ORDERED: Furosemide 40 MG/4 ML VIAL IVP ONE (17:22)
[2020-12-08] MEDS ORDERED: Naloxone 0.4 MG/ML INJ IVP PRN (18:36)
[2020-12-08] MEDS ORDERED: Acetaminophen 325 MG TABLET PO PRN (18:36)
[2020-12-08] MEDS ORDERED: MOM Conc 10 ML UD.LIQ PO PRN (18:36)
[2020-12-08] MEDS ORDERED: Ondansetron 4 MG/2 ML VIAL IVP PRN (18:36)
[2020-12-08] MEDS ORDERED: *HR* Metoprolol 5 MG/5 ML VIAL IVP ONE (18:43)
[2020-12-08] MEDS ORDERED: BUPRENORPHINE HCL SL SCH (18:45)
[2020-12-08] MEDS ORDERED: NALOXONE HCL SL SCH (18:45)
[2020-12-08] MEDS ORDERED: Perflutren Lipid Microsphere 1.3 ML in 0.9 % Sodium Chloride 8.7 ML IVP PRN (18:46)
[2020-12-08] MEDS ORDERED: Dextrose Gel 15 GM/37.5 ML TUBE PO PRN ×2 (18:49)
[2020-12-08] MEDS ORDERED: *HR* Dextrose 50 % in Water (Vial) 50 ML VIAL IVP PRN (18:49)
[2020-12-08] MEDS ORDERED: D5% in Water 1,000 ML IVC PRN (18:49)
[2020-12-08] MEDS: hydrALAZINE 25 MG TABLET PO SCH (20:23)
[2020-12-08] MEDS: cloNIDine HCL 0.1 MG TABLET PO SCH (20:23)
[2020-12-08] MEDS ORDERED: Insulin LISPRO 300 UNITS/3 ML VIAL SUBQ SCH (21:00)
[2020-12-08] MEDS: MethylPREDNISolone 40 MG/ML VIAL IVP SCH (23:42)
[2020-12-09 02:57] LABS: Bilirubin,Urine Negative (Negative); Blood,Urine Negative (Negative); Clarity,Urine Slightly Cloudy (Clear); Color,Urine Yellow (Yellow); Glucose,Urine (UA) Normal (Normal); Ketones,Urine Trace mg/dL (Negative); Leukocyte Esterase,Urine Negative (Negative); Nitrite,Urine Negative (Negative); Protein,Urine 100 mg/dL (Neg-Trace); Specific Gravity,Urine >= 1.030 (1.010-1.025); Urobilinogen,Urine Normal (Normal)
[2020-12-09 03:35] LABS: RBC,Urine 0-3 per hpf (0-3)
[2020-12-09 03:36] LABS: Bacteria,Urine Many per hpf (None-Few); Squamous Epithelial Cell,Urine Few per hpf (None-Few)
[2020-12-09] MEDS ORDERED: *HR* Metoprolol 5 MG/5 ML VIAL IVP ONE ×2 (04:27→09:41)
[2020-12-09 07:10] LABS: Basophils % 0.3 %; Eosinophils % 0.1 %; Hematocrit 33.2 % (35.3-44.9); Hemoglobin 10.1 g/dL (11.5-15.4); Immature Granulocytes % 0.5 % (0-4); Lymphocytes # 0.5 K/mcL (0.6-4.6); Lymphocytes % 6.7 %; Mean Corpuscular HGB Conc 30.4 g/dL (31.6-35.5); Mean Corpuscular Volume 85.3 fL (83.0-100.0); Mean Platelet Volume 10.7 fL (9.4-12.4); Monocytes # 0.1 K/mcL (0.0-1.3); Monocytes % 1.1 %; Neutrophils # 6.9 K/mcL (1.6-8.9); Platelet Count 200 K/mcL (140-400); Red Blood Count 3.89 M/mcL (3.82-4.97); Red Cell Distribution Width 17.5 % (11.5-14.5); Segmented Neutrophils % 91.3 %; White Blood Count 7.6 K/mcL (4.3-11.1)
[2020-12-09] MEDS ORDERED: Insulin LISPRO 300 UNITS/3 ML VIAL SUBQ SCH ×3 (07:30→17:00)
[2020-12-09 07:33] LABS: Calcium 8.1 mg/dL (8.6-10.3); Potassium 4.6 mEq/L (3.5-5.1)
[2020-12-09] MEDS ORDERED: *HR* Enoxaparin 40 MG/0.4 ML SYRINGE SQ SCH (08:30)
[2020-12-09 08:54] LABS: INR 1.4; Prothrombin Time 15.6 Seconds (9.4-12.1)
[2020-12-09] MEDS ORDERED: amLODIPine 5 MG TABLET PO SCH (09:00)
[2020-12-09] MEDS ORDERED: Furosemide 40 MG/4 ML VIAL IVP SCH (09:00)
[2020-12-09] MEDS ORDERED: Metoprolol XL (24 HR) Succ 50 MG TAB.ER.24H PO SCH (09:00)
[2020-12-09] MEDS ORDERED: BuPROPion XL (24 HR) 150 MG TABLET PO SCH (09:00)
[2020-12-09] MEDS ORDERED: Aspirin 81 MG TAB.CHEW PO SCH (09:00)
[2020-12-09] MEDS ORDERED: Cholecalciferol (D-3) 1,000 UNIT (25MCG) TABLET PO SCH (09:00)
[2020-12-09] MEDS ORDERED: SIMVASTATIN 80 MG PO SCH (09:00)
[2020-12-09] MEDS: MethylPREDNISolone 40 MG/ML VIAL IVP SCH (09:12)
[2020-12-09] MEDS: hydrALAZINE 25 MG TABLET PO SCH (09:15)
[2020-12-09] MEDS: Insulin LISPRO 300 UNITS/3 ML VIAL SUBQ SCH ×4 (09:15→18:31)
[2020-12-09] MEDS: cloNIDine HCL 0.1 MG TABLET PO SCH (09:15)
[2020-12-09] MEDS ORDERED: Budesonide/Formoterol 80/4.5 1 PUFF INH IH SCH (10:00)
[2020-12-09] MEDS ORDERED: BUPRENORPHINE SL SCH (10:00)
[2020-12-09] MEDS ORDERED: NALOXONE SL SCH (10:00)
[2020-12-09 10:12] LABS: Estimated Average Glucose 223 mg/dl; Hemoglobin A1C 9.4 %
[2020-12-09] MEDS ORDERED: Insulin DETEMIR 100 UNIT/ML X5UNITS SUBQ SCH ×3 (14:34→21:00)
[2020-12-09] MEDS: *HR* Adenosine 6 MG/2 ML VIAL IVP PRN ×2 (14:46→14:51)
[2020-12-09] MEDS ORDERED: *HR* Adenosine 6 MG/2 ML VIAL IVP ONE ×2 (14:51→15:06)
[2020-12-09] MEDS: Sennosides/Docusate Sodium TABLET PO SCH ×2 (16:25→21:41)
[2020-12-09] MEDS ORDERED: Levalbuterol Neb 1.25 MG/3 ML IH STA (17:58)
[2020-12-09 21:15] VITALS: BP 124/75
[2020-12-09] MEDS ORDERED: NALOXONE SL ONE (22:02)
[2020-12-09] MEDS ORDERED: BUPRENORPHINE SL ONE (22:02)
[2020-12-10] MEDS ORDERED: *HR* Heparin 5,000 UNIT/ML VIAL SQ SCH (06:00)
[2020-12-10] MEDS ORDERED: MethylPREDNISolone 40 MG/ML VIAL IVP SCH (09:00)
== END 2020-12-09 23:20 | disposition short-term general hospital (02) | DRG 309 ==
LOC: INPPIK 16:11 → EMEROOPIK 16:11 → INPPIK 19:35
PROVIDERS: ADMIT Family Medicine; ATTEND Family Medicine